=== PATIENT | male | born 1975 | race Two or more races ===

== ENCOUNTER 2019-03-30 11:15 | Emergency (ER) | payer MEDICAID ==
[~2019-03-30] VITALS: Ht 172.7 cm; Wt 105.0 kg
[2019-03-30 14:30] VITALS: BP 128/88
== END 2019-03-30 14:31 | disposition home or self-care (01) ==
LOC: ER 11:15
DX: R04.2 Hemoptysis (principal); F17.210 Nicotine dependence, cigarettes, uncomplicated; F12.90 Cannabis use, unspecified, uncomplicated
CPT/HCPCS: 71046; 99283

== ENCOUNTER 2025-03-26 12:57 | Emergency (ER) | payer MEDICAID ==
[~2025-03-26] VITALS: Ht 172.7 cm; Wt 87.0 kg
[2025-03-26 13:04] VITALS: BP 120/90; TEMP 37.1; O2SAT 99
[2025-03-26 13:05] VITALS: PULSE 87; RESP 18; O2SAT 96
== END 2025-03-26 16:15 | disposition left against medical advice (07) ==
LOC: ER 13:02
DX: R50.9 Fever, unspecified (principal); Z53.21 Procedure and treatment not carried out due to patient leaving prior to being seen by health care provider
CPT/HCPCS: 99281